=== PATIENT | female | born 1940 | race Caucasian/White ===

== ENCOUNTER → 2016-10-27 | Outpatient (CLI) | payer BC | LOC: BMCIMAGING 14:08 | DX: Z12.31 Encounter for screening mammogram for malignant neoplasm of breast (principal) | CPT/HCPCS: G0202 ==

== ENCOUNTER → 2017-11-11 | Outpatient (CLI) | payer BC | LOC: BMCIMAGING 08:00 | PROVIDERS: ATTEND Nurse Practitioner Adult Health | DX: Z12.31 Encounter for screening mammogram for malignant neoplasm of breast (principal) ==

== ENCOUNTER 2018-02-13 09:45 | Observation (INO) | payer BC ==
--- NOTE | 2018-02-13 10:28 | CPEKG ---
Heart Rate: 70 RR Interval: 857 P-R Interval: 180 QRSD Interval: 82 QT Interval: 404 QTC Interval: 436 P [place]: 55 QRS [place]: 4 T Wave [place]: 26 EKG Severity - NORMAL ECG - EKG Impression: SINUS RHYTHM Electronically Signed By: Sharad Mai 13-Feb-2018 21:12:24
--- NOTE | 2018-02-13 10:32 | EDPHY ---
General Time Seen by Provider: 02/13/18 10:10 Narrative: CHIEF COMPLAINT: Dizziness, lightheaded, unsteady on my feet HISTORY OF PRESENT ILLNESS: Patient presents with complaints of feeling dizzy, lightheaded and unsteady on my feet. Symptoms started Thursday. She awoke feeling shaky with the symptoms above. She felt that it may have been related to her history of hypoglycemia or her cervicogenic imbalance. She did not have a headache or any spinning or vertigo complaints. She says the symptoms were worse when she puts her head forward. Thursday she felt much improved. Thursday she was better. 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 There is a she began to feel worse and better again on Thursday. The symptoms have been very colicky. Difficult to reproduce on demand. She has had no chest pain or shortness of breath. She has an extensive history of cervicogenic imbalance with previous stroke workups that were reportedly negative. She has no unilateral complaints. No fever. No other associated complaints or modifying factors. She presented to Urgent Care just prior to arrival, where she was told her blood sugar was normal and sent her to our facility for higher level of care. REVIEW OF SYSTEMS: Ten systems reviewed and are negative unless otherwise noted in the HPI PCP: Dr. Vyas SPECIALISTS: Neurology PAST MEDICAL HISTORY: Cervicogenic imbalance, hypoglycemia PAST SURGICAL HISTORY: No surgical history SOCIAL HISTORY: Never smoker. Lives independently with her spouse. 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 Pupils equal and round, no conjunctival pallor or injection. No nystagmus or dysconjugate gaze. ENT, Mouth: Mucous membranes moist. Uvula midline. Airway patent Neck: Normal inspection, supple, non-tender. No meningismus or rigidity. Respiratory: Lungs are clear to auscultation Cardiovascular: Regular rate and rhythm. No murmur Gastrointestinal: Abdomen is soft and nontender Back: non-tender, no bony abnormalities Neurological: GCS 15. A&O, nonfocal, steady gait while feeling unsteady. No pronator drift. Normal [id number]. NIH stroke scale 0. Skin: Warm and dry, no rash Extremities: Nontender, no pedal edema Psychiatric: Mood and affect normal DIFFERENTIAL DIAGNOSES: Including but not limited to vertebrobasilar syndrome, cervicogenic balance, dehydration, hypoglycemia, vertigo, CVA, TIA MDM: 10:20 a.m. Intermittent feelings of dizziness and unsteadiness on feet with complicated history involving cervical [place] imbalance. She has no headache. She has no spinning sensation or true vertiginous complaints. Her vital signs are within normal limits. EKG is unremarkable interpreted by Dr. Coker. I have ordered laboratory studies 11:00 a.m. CBC unremarkable. The point of care potassium resulted at greater than 9. This is most likely an error as the patient has normal EKG. She does have a basic metabolic that reveals a slightly elevated potassium of 5.6. 12:00 p.m. Patient re-evaluated. She still feeling symptomatic and unsteady on her feet when she ambulates. I discussed MRI of the brain and admission and Dr. Coker agrees. The patient has consented to this. 12:20 p.m. Case discussed with hospitalist Dr. Lopez. She will admit the patient to the service of Dr. Mcqueen. She is admitted stable condition. 1:00 p.m. Notified by radiologist. MRI of the brain is unremarkable for acute findings. No evidence of ischemic events SUPERVISION: Patient was independently examined, but I discussed the case with my secondary supervising physician Dr. Coker - Diagnostics Imaging Results: Imaging Impressions Brain MRI 02/13/18 12:23 Impression: Negative MRI examination of the brain.. Mild underlying white matter disease and atrophy. Results called to Harish Whitney PA-C, at 1:50 PM. - History Smoking Status: Never smoked - Objective Vital Signs: Initial Vital Signs Temperature (C) 97.9 F 02/13/18 09:49 Heart Rate 62 02/13/18 09:49 Respiratory Rate 17 02/13/18 09:49 Blood Pressure 145/74 H 02/13/18 09:49 O2 Sat (%) 94 02/13/18 09:49 O2 Delivery Mode Room Air Allergies/Adverse Reactions: codeine Allergy (Unknown, Verified 02/13/18 14:04) Vomiting hydrocodone [Hydrocodone] Allergy (Unknown, Verified 02/13/18 14:04) Vomiting Sulfa (Sulfonamide Antibiotics) Allergy (Unknown, Verified 02/13/18 14:04) Unknown Home Medications: Medication Instructions Recorded Calcium Carbonate [Oyster Shell 500 mg PO DAILY 02/13/18 Calcium 500 mg (*)] Cholecalciferol Vit D3 [Vitamin D3 1,000 units PO MWF 02/13/18 (*)] Vitamin B Complex [Vitamin B 1 each PO DAILY 02/13/18 Complex (OTC)] Laboratory Results: Laboratory Results 02/13/18 10:15 02/13/18 10:15 02/13/18 02/13/18 02/13/18 10:47 10:41 10:15 WBC RBC Hgb POC Hgb 15.3 gm/dL gm/dL (12.6-16.3) Hct POC Hct 45 % % (38-47) MCV MCH MCHC RDW Plt Count MPV Neut % (Auto) Lymph % (Auto) Bond % (Auto) Eos % (Auto) Baso % (Auto) Nucleat RBC Rel Count Absolute Neuts (auto) Absolute Lymphs (auto) Absolute Monos (auto) Absolute Eos (auto) Absolute Basos (auto) Absolute Nucleated RBC Immature Gran % Immature Gran # POC Sodium 137 mEq/L mEq/L (135-145) Sodium 142 mEq/L mEq/L (135-145) POC Potassium > 9.0 mEq/L H* mEq/L (3.3-5.0) Potassium 5.6 mEq/L H mEq/L (3.3-5.0) POC Chloride 110 mEq/L mEq/L (97-110) Chloride 108 mEq/L mEq/L (97-110) Carbon Dioxide 24 mEq/l mEq/l (22-31) Anion Gap 10 mEq/L mEq/L (8-16) POC BUN 33 mg/dL H mg/dL (7-23) BUN 22 mg/dL mg/dL (7-23) Creatinine 0.8 mg/dL mg/dL (0.6-1.0) POC Creatinine 0.9 mg/dL mg/dL (0.6-1.0) Estimated GFR > 60 Glucose 83 mg/dL mg/dL (70-100) POC Glucose 85 mg/dL mg/dL (70-100) Calcium 9.5 mg/dL mg/dL (8.5-10.4) POC Troponin I 0.00 ng/mL ng/mL (0.00-0.08) Specimen Hemolysis 124 02/13/18 10:15 WBC 6.89 10^3/uL 10^3/uL (3.80-9.50) RBC 4.61 10^6/uL 10^6/uL (4.18-5.33) Hgb 14.7 g/dL g/dL (12.6-16.3) POC Hgb Hct 43.1 % % (38.0-47.0) POC Hct MCV 93.5 fL fL (81.5-99.8) MCH 31.9 pg pg (27.9-34.1) MCHC 34.1 g/dL g/dL (32.4-36.7) RDW 13.0 % % (11.5-15.2) Plt Count 156 10^3/uL 10^3/uL (150-400) MPV 9.1 fL fL (8.7-11.7) Neut % (Auto) 60.9 % % (39.3-74.2) Lymph % (Auto) 29.5 % % (15.0-45.0) Bond % (Auto) 7.0 % % (4.5-13.0) Eos % (Auto) 1.7 % % (0.6-7.6) Baso % (Auto) 0.6 % % (0.3-1.7) Nucleat RBC Rel Count 0.0 % % (0.0-0.2) Absolute Neuts (auto) 4.20 10^3/uL 10^3/uL (1.70-6.50) Absolute Lymphs (auto) 2.03 10^3/uL 10^3/uL (1.00-3.00) Absolute Monos (auto) 0.48 10^3/uL 10^3/uL (0.30-0.80) Absolute Eos (auto) 0.12 10^3/uL 10^3/uL (0.03-0.40) Absolute Basos (auto) 0.04 10^3/uL 10^3/uL (0.02-0.10) Absolute Nucleated RBC 0.00 10^3/uL 10^3/uL (0-0.01) Immature Gran % 0.3 % % (0.0-1.1) Immature Gran # 0.02 10^3/uL 10^3/uL (0.00-0.10) POC Sodium Sodium POC Potassium Potassium POC Chloride Chloride Carbon Dioxide Anion Gap POC BUN BUN Creatinine POC Creatinine Estimated GFR Glucose POC Glucose Calcium POC Troponin I Specimen Hemolysis Point of Care Test Results: Chemistry 02/13/18 02/13/18 10:47 10:41 POC Sodium 137 mEq/L mEq/L (135-145) POC Potassium > 9.0 mEq/L H* mEq/L (3.3-5.0) POC Chloride 110 mEq/L mEq/L (97-110) POC BUN 33 mg/dL H mg/dL (7-23) POC Creatinine 0.9 mg/dL mg/dL (0.6-1.0) POC Glucose 85 mg/dL mg/dL (70-100) POC Troponin I 0.00 ng/mL ng/mL (0.00-0.08) ISTAT H&H 02/13/18 10:47 POC Hgb 15.3 gm/dL gm/dL (12.6-16.3) POC Hct 45 % % (38-47) Departure - Departure Disposition: [facility] Inpatient Acute Clinical Impression: Dizzy, Unsteady gait Condition: Fair Referrals: Rachele Pruett NP [Primary Care Provider] - As per Instructions
[2018-02-13 10:48] LABS: PLATELET COUNT 156 10^3/uL (150-400)
[2018-02-13] MEDS ORDERED: GADOBUTROL 10 ML VIAL IVP ONE (12:58)
[2018-02-13] MEDS ORDERED: ACETAMINOPHEN 325 MG TAB PO PRN (15:13)
[2018-02-13] MEDS ORDERED: D50W 25 GM/50 ML SYR IVP PRN ×2 (15:27→15:28)
[2018-02-13] MEDS ORDERED: NICOTINE 14 MG/24 HR PATCH TD PRN (15:56)
[2018-02-13 16:34] VITALS: BP 115/67
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
== END 2018-02-13 18:03 | disposition home or self-care (01) ==
LOC: F3N 13:46
PROVIDERS: ADMIT Internal Medicine; ATTEND Internal Medicine
DX: R55 Syncope and collapse (principal); R26.89 Other abnormalities of gait and mobility; E16.2 Hypoglycemia, unspecified
CPT/HCPCS: 70553; 93005; G0378; 82435-PO; 82565-PO; 82607-90; 82947-PO; 84132-PO; 84295-PO; 84484-PO; 84520-PO; 85014-PO; A9585

== ENCOUNTER → 2018-11-09 | Outpatient (CLI) | payer BC | LOC: BMCIMAGING 08:18 | PROVIDERS: ATTEND Nurse Practitioner Adult Health | DX: M25.531 Pain in right wrist (principal) ==

== ENCOUNTER → 2018-11-22 | Outpatient (CLI) | payer BC | LOC: BMCIMAGING 07:36 | PROVIDERS: ATTEND Nurse Practitioner Adult Health | DX: Z12.31 Encounter for screening mammogram for malignant neoplasm of breast (principal) ==

== ENCOUNTER → 2018-12-06 | Outpatient (CLI) | payer BC | LOC: FIMAGING 10:35 | PROVIDERS: ATTEND Internal Medicine Endocrinology, Diabetes & Metabolism | DX: Z13.820 Encounter for screening for osteoporosis (principal); M85.89 Other specified disorders of bone density and structure, multiple sites; Z78.0 Asymptomatic menopausal state; Z87.81 Personal history of (healed) traumatic fracture; Z79.899 Other long term (current) drug therapy ==

== ENCOUNTER → 2019-01-26 | Outpatient (CLI) | payer BC | LOC: FIMAGING 13:26 ==